=== PATIENT | male | born 1975 | race Caucasian/White ===

== ENCOUNTER 2025-06-23 17:33 | Emergency (ER) | payer OTHER, MEDICARE ==
[~2025-06-23 17:33] MED LIST: Iopamidol 370 76% 100 ML VIAL ONE
[2025-06-23] MEDS ORDERED: Nitroglycerin 0.4 MG TAB 1 EACH ONE (17:52)
[2025-06-23] MEDS ORDERED: Acetaminophen 500 MG TAB ONE (17:52)
[2025-06-23] MEDS ORDERED: Aspirin Chewable 81 MG TAB ONE (17:53)
[2025-06-23 18:10] LABS: #Basophils 0.1 thou/uL (0.0-0.2); #Eosinophils 0.1 thou/uL (0.0-0.7); #Lymphocytes 1.8 thou/uL (1.20-3.40); #Monocytes 0.8 thou/uL (0.11-0.59); #Neutrophils 5.5 thou/uL (1.40-6.50); %Basophils 1.2 % (0.0-1.0); %Eosinophils 0.7 % (0.0-10.0); %Lymphocytes 21.6 % (21.0-51.0); %Monocytes 10.1 % (0.0-10.0); %Neutrophils 66.4 % (42.0-75.0); Hematocrit 46.5 % (42.0-52.0); Hemoglobin 15.3 g/dL (14.0-18.0); Mean Corpuscular Hemoglobin 33.7 pg (27.0-31.0); Mean Corpuscular Volume 102.5 fl (78.0-98.0); Platelet Count 186 10x3/uL (130-400); Red Blood Cell (RBC) Count 4.54 mill/uL (4.70-6.10); White Blood Cell (WBC) Count 8.3 10x3/uL (4.8-10.8)
[2025-06-23 18:17] LABS: INR-International Normal Ratio 1.1; Prothrombin Time 14.7 sec (12.0-14.7)
[2025-06-23 18:18] LABS: PTT 31.4 sec (22.9-36.1)
[2025-06-23 18:28] LABS: ALT (SGPT) 27 U/L (Less than 45); AST (SGOT) 30 U/L (11-34); Albumin 3.9 g/dL (3.1-4.5); Alkaline Phosphatase 95 U/L (40-110); Anion Gap 18 mmol/L (10-20); BUN (Urea Nitrogen) 11 mg/dL (8.4-25.7); Bilirubin, Total 0.6 mg/dL (0.3-1.2); Calc. Creatinine Clearance 0 mL/min (70-130); Calcium 9.1 mg/dL (7.8-10.44); Carbon Dioxide 18 mmol/L (22-29); Chloride 106 mmol/L (98-107); Globulin 3.2 g/dL (2.4-3.5); Glucose 99 mg/dL (70-105); Lipase 25 U/L (8-78); Magnesium 1.8 mg/dL (1.6-2.6); Potassium 4.0 mmol/L (3.5-5.1); Sodium 138 mmol/L (136-145)
[2025-06-23 18:29] LABS: Troponin I Less than 0.010 ng/mL (< 0.028)
[2025-06-23] MEDS ORDERED: Nitroglycerin 2% Ointment 1 INCH/1 GM Packet ONE (18:45)
[2025-06-23 20:06] LABS: Troponin I 0.012 ng/mL (< 0.028)
== END 2025-06-23 20:22 | disposition home or self-care (01) ==
LOC: MADERS 17:33
DX: R07.89 Other chest pain (principal); I10 Essential (primary) hypertension; R91.8 Other nonspecific abnormal finding of lung field; Z79.899 Other long term (current) drug therapy; Z79.01 Long term (current) use of anticoagulants
CPT/HCPCS: 36415; 71045; 71275; 80053; 83690; 83735; 83880; 84484; 85025; 85610; 85730; 93005; 94760; Q9967